=== PATIENT | male | born 1995 | race Caucasian/White ===

== ENCOUNTER 2016-06-26 08:52 | Emergency (ER) | payer BC ==
[2016-06-26 08:57] VITALS: RESP 18; TEMP 98.1
--- NOTE | 2016-06-26 09:43 | EDPHY ---
H & P Stated Complaint: R ANKLE PAIN,TWISTED LAST NIGHT HPI/ROS: Chief complaint: Right ankle injury History of present illness: This is a 21-year-old male who presents to the emergency department for right ankle injury. Patient was jumping on a trampoline last night when he twisted it. He has increasing pain and swelling. It makes it difficult to ambulate. No report of open wounds. No report of paresthesias or abnormal coolness in the foot. No other injuries reported. - Personal History Current Tetanus Diphtheria and Acellular Pertussis (TDAP): Yes - Medical/Surgical History Hx Asthma: No Hx Chronic Respiratory Disease: No Hx Diabetes: No Hx Cardiac Disease: No Hx Renal Disease: No Hx Cirrhosis: No Hx Alcoholism: No Hx HIV/AIDS: No Hx Splenectomy or Spleen Trauma: No - Social History Smoking Status: Never smoked - Physical Exam Exam: General appearance: alert, nontoxic Musculoskeletal: There is edema around the lateral malleolus with associated tenderness. No crepitus or bony deformity. The rest of the ankle including over the Achilles is unremarkable. The knee, lower leg and foot are nontender. Patient is moving the knee and the digits of the foot well. Vascular exam: Normal pulses and capillary refill in the foot Neurologic exam: The patient has normal sensation and motor function distal to the injury. Constitutional: Initial Vital Signs Temperature (C) 36.7 C 06/26/16 08:54 Heart Rate 97 06/26/16 08:54 Respiratory Rate 18 06/26/16 08:54 Blood Pressure 144/75 H 06/26/16 08:54 O2 Sat (%) 94 06/26/16 08:54 O2 Delivery Mode Room Air Allergies/Adverse Reactions: No Known Allergies Allergy (Unverified 06/26/16 08:57) Home Medications: Medication Instructions Recorded NK [No Known Home Meds] 06/26/16 Medical Decision Making - Diagnostics Imaging: X-ray series of the right ankle negative for acute findings Procedures: Procedure: Splint placement. A Setphon wrap and Velcro stirrup splint was applied. After application of the splint I returned and re-examined the patient. The splint was adequately immobilizing the joint and distal to the splint the patient's circulation and sensation was intact. ED Course/Re-evaluation: Patient seen under the supervision of my secondary supervising physician Dr. Jean Magana. Patient presents to the emergency depart with a right ankle injury. The foot is neurovascularly intact. X-ray series is negative. Likely a sprain. He is placed in an Stephon wrap and stirrup splint and given crutches. Referred to Orthopedics for recheck. Home care is discussed. Return precautions are given. Patient voiced understanding and agreement plan. Differential Diagnosis: Included but not limited to sprain, strain, contusion, bony fracture, joint dislocation Departure - Departure Disposition: Home, Routine, Self-Care Clinical Impression: Ankle sprain Qualifiers: Encounter type: initial encounter Involved ligament of ankle: unspecified ligament Laterality: right Qualified Code(s): S93.401A - Sprain of unspecified ligament of right ankle, initial encounter Condition: Good Instructions: Ankle Sprain (ED) Additional Instructions: Follow-up with orthopedics for continued evaluation and care Use ibuprofen 600 mg 3 times daily for the next 2-3 days for pain and swelling Ice the injury, 20 minutes on, 3 times daily for the next 3 days If symptoms worsen or new symptoms develop return to the emergency department for recheck Referrals: BUBBA GARCIA [Other] - As per Instructions Talita Rothman MD [Medical Doctor] - As per Instructions
[2016-06-26 10:21] VITALS: BP 136/74; PULSE 75; O2SAT 96
== END 2016-06-26 10:19 | disposition home or self-care (01) ==
DX: S93.401A Sprain of unspecified ligament of right ankle, initial encounter (principal); X58.XXXA Exposure to other specified factors, initial encounter; Y99.8 Other external cause status; Y93.44 Activity, trampolining
CPT/HCPCS: L4350